=== PATIENT | female | born 1985 | race Caucasian/White ===

== ENCOUNTER 2021-10-05 10:25 | Emergency (ER) | payer MEDICAID | END 2021-10-05 12:20 | disposition home or self-care (01) | LOC: JD.ED 10:25 | DX: T81.89XA Other complications of procedures, not elsewhere classified, initial encounter (principal); Z88.5 Allergy status to narcotic agent; Z88.2 Allergy status to sulfonamides; Z86.16 Personal history of COVID-19 | CPT/HCPCS: 99283 ==

== ENCOUNTER 2022-02-06 06:37 | Inpatient (IN) | payer MEDICAID ==
[2022-02-06] MEDS ORDERED: Metoclopramide 10 MG/2 ML SDV IVPUSH ONE (07:21)
[2022-02-06] MEDS ORDERED: diphenhydrAMINE 50 MG/ML SDV IVPUSH ONE (07:22)
[2022-02-06] MEDS ORDERED: Dextrose 5%-0.9% NaCl 1,000 ML IV SCH (07:30)
[2022-02-06] MEDS ORDERED: HYDROmorphone 1 MG/ML Syringe IVPUSH ONE ×3 (07:35→12:02)
[2022-02-06] MEDS ORDERED: Iopamidol 612 MG/ML 100 ML Bottle IVPUSH ONE (09:06)
[2022-02-06] MEDS ORDERED: Iopamidol 612 MG/ML 50 ML SDV IVPUSH ONE (09:06)
[2022-02-06] MEDS ORDERED: Sodium Chloride 0.9% 10 ML Syringe FLUSH PRN (09:06)
[2022-02-06] MEDS ORDERED: Lactated Ringers 1,000 ML IV SCH ×2 (11:45→14:45)
[2022-02-06] MEDS ORDERED: Albuterol 6.7 GM Inhaler INH PRN (12:05)
[2022-02-06] MEDS: Potassium Chloride 10 MEQ in Premix Bag 1 BAG IV SCH ×4 (12:12→15:56)
[2022-02-06] MEDS ORDERED: LORazepam 2 MG/ML SDV IVPUSH PRN (12:14)
[2022-02-06] MEDS: HYDROmorphone 1 MG/ML Syringe IVPUSH PRN ×4 (12:41→21:37)
[2022-02-06] MEDS: Enoxaparin 40 MG/0.4 ML Syringe SUBCUT SCH (13:27)
[2022-02-06] MEDS ORDERED: Ketorolac 30 MG/ML SDV IVPUSH ONE (13:35)
[2022-02-06] MEDS: Ondansetron 4 MG/2 ML SDV IVPUSH PRN ×2 (14:58→20:58)
[2022-02-06] MEDS: Metoclopramide 10 MG/2 ML SDV IVPUSH PRN (17:38)
[2022-02-06] MEDS: Formoterol/Mometasone 100-5 MCG 8.8 GM Inhaler IH SCH (20:56)
[2022-02-06] MEDS: Acyclovir 200 MG Cap PO SCH (20:58)
[2022-02-06] MEDS: Thiamine 100 MG Tab PO SCH (20:58)
[2022-02-06] MEDS: Pantoprazole 40 MG Tab.CR PO SCH (20:58)
[2022-02-06] MEDS: Topiramate 25 MG Tab PO SCH (20:58)
[2022-02-06] MEDS: Fluticasone NASAL Spray 16 GM Bottle NASBOTH SCH (20:59)
[2022-02-07] MEDS: HYDROmorphone 1 MG/ML Syringe IVPUSH PRN ×5 (01:23→20:18)
[2022-02-07] MEDS: Metoclopramide 10 MG/2 ML SDV IVPUSH PRN ×5 (01:24→20:18)
[2022-02-07] MEDS ORDERED: Magnesium Sulfate/Water 4 GM in Premix Bag 1 BAG IV ONE (08:06)
[2022-02-07] MEDS ORDERED: cefTRIAXone 2 GM in Sodium Chloride 0.9% 100 ML IV SCH (08:15)
[2022-02-07] MEDS: Sodium Chloride 0.45% with KCl 1,000 ML IV SCH ×2 (08:43→18:24)
[2022-02-07] MEDS: cefTRIAXone 2 GM in Sodium Chloride 0.9% 100 ML IV SCH (08:50)
[2022-02-07] MEDS ORDERED: Chlorthalidone 25 MG Tab PO SCH (09:00)
[2022-02-07] MEDS: Fluticasone NASAL Spray 16 GM Bottle NASBOTH SCH ×2 (09:37→20:16)
[2022-02-07] MEDS: Acyclovir 200 MG Cap PO SCH ×2 (09:38→20:17)
[2022-02-07] MEDS: buPROPion 150 MG Tab.ER PO SCH (09:38)
[2022-02-07] MEDS: Folic Acid 1 MG Tab PO SCH (09:38)
[2022-02-07] MEDS: Formoterol/Mometasone 100-5 MCG 8.8 GM Inhaler IH SCH ×2 (09:45→20:02)
[2022-02-07] MEDS: Enoxaparin 40 MG/0.4 ML Syringe SUBCUT SCH (13:38)
[2022-02-07] MEDS ORDERED: Acetaminophen/HYDROcodone 325-5 MG Tab PO PRN (14:15)
[2022-02-07] MEDS ORDERED: HYDROmorphone 1 MG/ML Syringe IVPUSH PRN ×2 (14:16→17:30)
[2022-02-07] MEDS ORDERED: Phenazopyridine 95 MG Tab PO ONE (14:30)
[2022-02-07] MEDS: Pantoprazole 40 MG Tab.CR PO SCH (20:17)
[2022-02-07] MEDS: Thiamine 100 MG Tab PO SCH (20:17)
[2022-02-07] MEDS: Topiramate 25 MG Tab PO SCH (20:18)
[2022-02-07] MEDS: Phenazopyridine 95 MG Tab PO SCH (20:18)
[2022-02-07] MEDS: Acetaminophen/HYDROcodone 325-10 MG Tab PO PRN (21:46)
[2022-02-08] MEDS: Metoclopramide 10 MG/2 ML SDV IVPUSH PRN ×6 (00:18→22:57)
[2022-02-08] MEDS: HYDROmorphone 1 MG/ML Syringe IVPUSH PRN ×5 (00:19→23:00)
[2022-02-08] MEDS: Acetaminophen/HYDROcodone 325-10 MG Tab PO PRN ×4 (01:48→21:05)
[2022-02-08] MEDS: Sodium Chloride 0.45% with KCl 1,000 ML IV SCH ×2 (04:25→13:12)
[2022-02-08] MEDS: buPROPion 150 MG Tab.ER PO SCH (08:42)
[2022-02-08] MEDS: cefTRIAXone 2 GM in Sodium Chloride 0.9% 100 ML IV SCH (08:42)
[2022-02-08] MEDS: Phenazopyridine 95 MG Tab PO SCH ×3 (08:43→18:16)
[2022-02-08] MEDS: Acyclovir 200 MG Cap PO SCH ×2 (08:43→21:05)
[2022-02-08] MEDS: Folic Acid 1 MG Tab PO SCH (08:43)
[2022-02-08] MEDS: Fluticasone NASAL Spray 16 GM Bottle NASBOTH SCH ×2 (08:43→21:06)
[2022-02-08] MEDS: Formoterol/Mometasone 100-5 MCG 8.8 GM Inhaler IH SCH ×2 (08:52→20:16)
[2022-02-08] MEDS: Enoxaparin 40 MG/0.4 ML Syringe SUBCUT SCH (13:07)
[2022-02-08] MEDS ORDERED: fentaNYL 12 MCG/HR Transdermal Patch TRDERM SCH (13:30)
[2022-02-08] MEDS: Pantoprazole 40 MG Vial IVPUSH SCH (13:35)
[2022-02-08] MEDS: Chlorthalidone 25 MG Tab PO SCH (13:35)
[2022-02-08] MEDS: Thiamine 100 MG Tab PO SCH (21:04)
[2022-02-08] MEDS: Topiramate 25 MG Tab PO SCH (21:05)
[2022-02-08] MEDS: Pantoprazole 40 MG Tab.CR PO SCH (21:06)
[2022-02-08] MEDS: D5 1/2 NS w/ 40 mEq/L KCl 1,000 ML IV SCH (23:06)
[2022-02-09] MEDS: Pantoprazole 40 MG Vial IVPUSH SCH ×2 (03:10→13:44)
[2022-02-09] MEDS: HYDROmorphone 1 MG/ML Syringe IVPUSH PRN ×5 (03:16→21:19)
[2022-02-09] MEDS: Metoclopramide 10 MG/2 ML SDV IVPUSH PRN ×4 (03:21→21:15)
[2022-02-09] MEDS: cefTRIAXone 2 GM in Sodium Chloride 0.9% 100 ML IV SCH (07:50)
[2022-02-09] MEDS: Acetaminophen/HYDROcodone 325-10 MG Tab PO PRN ×3 (07:51→22:27)
[2022-02-09] MEDS: Fluticasone NASAL Spray 16 GM Bottle NASBOTH SCH ×2 (08:09→21:23)
[2022-02-09] MEDS: Acyclovir 200 MG Cap PO SCH ×2 (08:09→21:04)
[2022-02-09] MEDS: buPROPion 150 MG Tab.ER PO SCH (08:10)
[2022-02-09] MEDS: Folic Acid 1 MG Tab PO SCH (08:10)
[2022-02-09] MEDS: Phenazopyridine 95 MG Tab PO SCH ×3 (08:10→18:08)
[2022-02-09] MEDS: Chlorthalidone 25 MG Tab PO SCH (08:10)
[2022-02-09] MEDS: Formoterol/Mometasone 100-5 MCG 8.8 GM Inhaler IH SCH ×2 (08:56→20:49)
[2022-02-09] MEDS: Enoxaparin 40 MG/0.4 ML Syringe SUBCUT SCH (12:25)
[2022-02-09] MEDS: Ondansetron 4 MG/2 ML SDV IVPUSH PRN (12:26)
[2022-02-09] MEDS: D5 1/2 NS w/ 40 mEq/L KCl 1,000 ML IV SCH (13:44)
[2022-02-09] MEDS: Topiramate 25 MG Tab PO SCH (21:04)
[2022-02-09] MEDS: Thiamine 100 MG Tab PO SCH (21:04)
[2022-02-10] MEDS: D5 1/2 NS w/ 40 mEq/L KCl 1,000 ML IV SCH ×2 (02:26→16:17)
[2022-02-10] MEDS: Metoclopramide 10 MG/2 ML SDV IVPUSH PRN (02:27)
[2022-02-10] MEDS: Pantoprazole 40 MG Vial IVPUSH SCH ×2 (02:30→13:47)
[2022-02-10] MEDS: HYDROmorphone 1 MG/ML Syringe IVPUSH PRN ×5 (02:35→22:10)
[2022-02-10] MEDS: Acetaminophen/HYDROcodone 325-10 MG Tab PO PRN ×3 (06:30→19:55)
[2022-02-10] MEDS: Formoterol/Mometasone 100-5 MCG 8.8 GM Inhaler IH SCH ×2 (08:48→20:22)
[2022-02-10] MEDS: Folic Acid 1 MG Tab PO SCH (09:00)
[2022-02-10] MEDS: buPROPion 150 MG Tab.ER PO SCH (09:00)
[2022-02-10] MEDS: Acyclovir 200 MG Cap PO SCH (09:01)
[2022-02-10] MEDS: Phenazopyridine 95 MG Tab PO SCH (09:01)
[2022-02-10] MEDS: Chlorthalidone 25 MG Tab PO SCH (09:03)
[2022-02-10] MEDS: Fluticasone NASAL Spray 16 GM Bottle NASBOTH SCH (09:03)
[2022-02-10 10:23] LABS: HEMOGLOBIN A1C 5.1 %
[2022-02-10] MEDS: Ondansetron 4 MG/2 ML SDV IVPUSH PRN ×2 (10:54→22:10)
[2022-02-10] MEDS: Enoxaparin 40 MG/0.4 ML Syringe SUBCUT SCH (13:46)
[2022-02-11] MEDS: Pantoprazole 40 MG Vial IVPUSH SCH (01:59)
[2022-02-11] MEDS: HYDROmorphone 1 MG/ML Syringe IVPUSH PRN ×5 (02:05→20:14)
[2022-02-11] MEDS: Fluticasone NASAL Spray 16 GM Bottle NASBOTH SCH ×4 (02:29→22:39)
[2022-02-11] MEDS: Acetaminophen/HYDROcodone 325-10 MG Tab PO PRN (04:14)
[2022-02-11] MEDS: D5 1/2 NS w/ 40 mEq/L KCl 1,000 ML IV SCH ×3 (06:08→22:33)
[2022-02-11] MEDS: Metoclopramide 10 MG/2 ML SDV IVPUSH PRN ×3 (06:19→20:14)
[2022-02-11] MEDS: Folic Acid 1 MG Tab PO SCH (08:41)
[2022-02-11] MEDS ORDERED: hydrALAZINE 20 MG/ML SDV IVPUSH ONE (09:24)
[2022-02-11] MEDS ORDERED: Sodium Chloride 0.9% 1,000 ML IV ONE (09:27)
[2022-02-11] MEDS ORDERED: Iopamidol 612 MG/ML 100 ML Bottle IVPUSH ONE (09:30)
[2022-02-11] MEDS ORDERED: Iopamidol 612 MG/ML 50 ML SDV IVPUSH ONE (09:30)
[2022-02-11] MEDS ORDERED: Sodium Chloride 0.9% 10 ML Syringe FLUSH PRN (09:30)
[2022-02-11] MEDS: oxyCODONE 5 MG Tab PO PRN ×3 (10:05→22:36)
[2022-02-11] MEDS: Formoterol/Mometasone 100-5 MCG 8.8 GM Inhaler IH SCH ×2 (10:24→20:02)
[2022-02-11] MEDS: Acetaminophen 325 MG Tab PO PRN ×3 (11:28→22:36)
[2022-02-12] MEDS: HYDROmorphone 1 MG/ML Syringe IVPUSH PRN ×5 (01:56→19:50)
[2022-02-12] MEDS: Metoclopramide 10 MG/2 ML SDV IVPUSH PRN ×4 (01:57→21:11)
[2022-02-12] MEDS: oxyCODONE 5 MG Tab PO PRN ×2 (05:51→10:05)
[2022-02-12] MEDS: Acetaminophen 325 MG Tab PO PRN ×3 (05:51→14:12)
[2022-02-12] MEDS: D5 1/2 NS w/ 40 mEq/L KCl 1,000 ML IV SCH ×3 (05:52→21:51)
[2022-02-12] MEDS ORDERED: Magnesium Sulfate/Water 2 GM in Premix Bag 1 BAG IV ONE (07:03)
[2022-02-12] MEDS: Pantoprazole 40 MG Tab.CR PO SCH (07:59)
[2022-02-12] MEDS: Fluticasone NASAL Spray 16 GM Bottle NASBOTH SCH ×2 (08:04→21:07)
[2022-02-12] MEDS: Formoterol/Mometasone 100-5 MCG 8.8 GM Inhaler IH SCH ×2 (08:53→20:49)
[2022-02-12] MEDS: oxyCODONE 5 MG Tab PO SCH ×3 (14:12→21:06)
[2022-02-12] MEDS: Losartan 50 MG Tab PO SCH (21:06)
[2022-02-13] MEDS: HYDROmorphone 1 MG/ML Syringe IVPUSH PRN ×6 (00:58→18:45)
[2022-02-13] MEDS: oxyCODONE 5 MG Tab PO SCH ×6 (01:43→22:21)
[2022-02-13] MEDS: D5 1/2 NS w/ 40 mEq/L KCl 1,000 ML IV SCH ×3 (04:55→22:25)
[2022-02-13] MEDS: Pantoprazole 40 MG Tab.CR PO SCH (09:33)
[2022-02-13] MEDS: Losartan 50 MG Tab PO SCH (09:33)
[2022-02-13] MEDS: Fluticasone NASAL Spray 16 GM Bottle NASBOTH SCH ×2 (09:33→22:22)
[2022-02-13] MEDS ORDERED: Polyethylene Glycol 3350 Powder 17 GM Packet PO PRN (13:32)
[2022-02-13] MEDS ORDERED: Magnesium Hydroxide 400 MG/5 ML Susp 30 ML Cup PO PRN (13:33)
[2022-02-13] MEDS: Formoterol/Mometasone 100-5 MCG 8.8 GM Inhaler IH SCH ×2 (13:47→20:05)
[2022-02-13] MEDS: Metoclopramide 10 MG/2 ML SDV IVPUSH PRN ×2 (13:52→18:46)
[2022-02-13] MEDS: Docusate Sodium 100 MG Cap PO SCH ×2 (16:59→22:21)
[2022-02-14] MEDS: HYDROmorphone 1 MG/ML Syringe IVPUSH PRN ×2 (00:39→11:58)
[2022-02-14] MEDS: Metoclopramide 10 MG/2 ML SDV IVPUSH PRN ×2 (00:39→06:40)
[2022-02-14] MEDS: oxyCODONE 5 MG Tab PO SCH ×5 (02:03→17:13)
[2022-02-14] MEDS: D5 1/2 NS w/ 40 mEq/L KCl 1,000 ML IV SCH (02:05)
[2022-02-14] MEDS: Formoterol/Mometasone 100-5 MCG 8.8 GM Inhaler IH SCH (09:20)
[2022-02-14] MEDS: Losartan 50 MG Tab PO SCH (09:30)
[2022-02-14] MEDS: Docusate Sodium 100 MG Cap PO SCH (09:32)
[2022-02-14] MEDS: Pantoprazole 40 MG Tab.CR PO SCH (09:32)
[2022-02-14] MEDS: Fluticasone NASAL Spray 16 GM Bottle NASBOTH SCH (09:32)
== END 2022-02-14 17:24 | disposition home or self-care (01) | DRG 439 ==
LOC: JD.ED 06:37 → JD.MS 11:39 → JD.OB 02-09 15:21 → JD.MS 02-12 08:21
PROVIDERS: ADMIT Internal Medicine Cardiovascular Disease; ATTEND Internal Medicine Cardiovascular Disease
DX: K85.20 Alcohol induced acute pancreatitis without necrosis or infection (principal); E87.1 Hypo-osmolality and hyponatremia; J98.11 Atelectasis; N30.00 Acute cystitis without hematuria; K76.0 Fatty (change of) liver, not elsewhere classified; E87.6 Hypokalemia; K75.81 Nonalcoholic steatohepatitis (NASH); F10.20 Alcohol dependence, uncomplicated; E78.5 Hyperlipidemia, unspecified; E83.42 Hypomagnesemia; J45.909 Unspecified asthma, uncomplicated; Z79.899 Other long term (current) drug therapy; Z79.51 Long term (current) use of inhaled steroids; Z88.2 Allergy status to sulfonamides; Z86.16 Personal history of COVID-19; Z90.710 Acquired absence of both cervix and uterus
CPT/HCPCS: 36415; 74177; 74177-26; 80048; 80053; 80061; 80076; 81001; 82977; 83036; 83605; 83690; 83735; 85007; 85025; 85027; 85610; 85652; 85730; 86140; 87086; 94640; 94760; 94761; 94762; 96361; 96374; 96375; 99284; 99285-25; A9270-GY; C9113; J0696; J1170; J1200; J1650; J1885; J2405; J2765; J3475; J3480; J3490; J7030; J7042; J7120; Q9967

== ENCOUNTER 2022-06-30 10:50 | Day surgery (SDC) | payer MEDICAID ==
[~2022-06-30 10:50] MED LIST: Bupivacaine 0.5%/EPINEPHrine 1:200,000 50 ML MDV ONE; Lactated Ringers 1,000 ML IV SCH; Lidocaine 1% with EPINEPHrine 1:100,000 10 ML MDV ONE; Lidocaine 1%/Sod Bicarbonate in NS 8.4% 1 ML Syringe IDERM PRN; Sodium Chloride 0.9% 10 ML Syringe FLUSH PRN; Sodium Chloride 0.9% 10 ML Syringe FLUSH SCH
[2022-06-30] MEDS ORDERED: HYDROmorphone 0.5 MG/0.5 ML Syringe IVPUSH PRN (11:42)
[2022-06-30] MEDS ORDERED: Ondansetron 4 MG/2 ML SDV IVPUSH PRN (11:42)
[2022-06-30] MEDS ORDERED: Sugammadex Sodium 200 MG/2 ML VIAL ONE (11:45)
[2022-06-30] MEDS ORDERED: Famotidine 20 MG/2 ML SDV ONE (11:46)
[2022-06-30] MEDS ORDERED: Bupivacaine 0.5%/EPINEPHrine 1:200,000 50 ML MDV ONE (12:05)
[2022-06-30] MEDS ORDERED: Midazolam 1 MG/ML 2 ML SDV ONE (12:17)
[2022-06-30] MEDS ORDERED: Ketamine 500 mg/10 ML MDV ONE (12:17)
[2022-06-30] MEDS ORDERED: fentaNYL 100 MCG/2 ML SDV ONE ×2 (12:17→14:02)
[2022-06-30] MEDS ORDERED: Propofol 200 MG/20 ML SDV ONE ×4 (12:18→14:50)
[2022-06-30] MEDS ORDERED: Lidocaine 1% 5 ML VIAL ONE (12:23)
[2022-06-30] MEDS ORDERED: Ondansetron 4 MG/2 ML SDV ONE (12:25)
[2022-06-30] MEDS ORDERED: Dexamethasone 4 MG/ML 5 ML MDV ONE (12:27)
[2022-06-30] MEDS ORDERED: ceFAZolin 2 GM Vial ONE (12:32)
[2022-06-30] MEDS ORDERED: Potassium Chloride 10 MEQ in Premix Bag 1 BAG IV ONE (13:11)
[2022-06-30] MEDS ORDERED: Dexmedetomidine 200 MCG/2 ML SDV ONE (13:19)
[2022-06-30] MEDS ORDERED: Rocuronium 50 MG/5 ML Vial ONE (14:18)
[2022-06-30] MEDS ORDERED: HYDROmorphone 0.5 MG/0.5 ML Syringe ONE ×2 (14:46→15:15)
[2022-06-30] MEDS ORDERED: Ketorolac 30 MG/ML SDV ONE (14:48)
[2022-06-30] MEDS ORDERED: Potassium Chloride 20 MEQ Tab.ER PO ONE (15:10)
[2022-06-30] MEDS: fentaNYL 100 MCG/2 ML SDV IVPUSH PRN ×2 (15:30→15:41)
[2022-06-30] MEDS ORDERED: Acetaminophen/oxyCODONE 325-5 MG Tab PO SCH (15:38)
== END 2022-06-30 17:20 | disposition home or self-care (01) ==
LOC: JD.SDS 10:50
PROVIDERS: ATTEND Surgery
DX: K81.1 Chronic cholecystitis (principal); E66.01 Morbid (severe) obesity due to excess calories; I10 Essential (primary) hypertension; F41.1 Generalized anxiety disorder; J45.20 Mild intermittent asthma, uncomplicated; F33.41 Major depressive disorder, recurrent, in partial remission; Z68.41 Body mass index [BMI] 40.0-44.9, adult; Z88.8 Allergy status to other drugs, medicaments and biological substances; Z88.2 Allergy status to sulfonamides; Z79.899 Other long term (current) drug therapy; Z98.890 Other specified postprocedural states; Z90.710 Acquired absence of both cervix and uterus; Z87.891 Personal history of nicotine dependence; Z86.16 Personal history of COVID-19
CPT/HCPCS: 36415; 47562; 80048; A9270; J0690; J1100; J1170; J1885; J2250; J2405; J2704; J3010; J3480; J3490; J7120

== ENCOUNTER 2022-07-07 07:20 | Emergency (ER) | payer MEDICAID ==
[2022-07-07] MEDS ORDERED: Sodium Chloride 0.9% 1,000 ML IV STA (07:49)
[2022-07-07] MEDS ORDERED: Pantoprazole 40 MG Vial IVPUSH ONE (07:49)
[2022-07-07] MEDS ORDERED: Sodium Chloride 0.9% 10 ML Syringe FLUSH PRN (07:49)
[2022-07-07] MEDS ORDERED: Ondansetron 4 MG/2 ML SDV IVPUSH ONE (07:49)
[2022-07-07] MEDS ORDERED: HYDROmorphone 1 MG/ML Syringe IVPUSH ONE (07:52)
[2022-07-07] MEDS ORDERED: Iopamidol 612 MG/ML 100 ML Bottle IVPUSH ONE (08:04)
[2022-07-07] MEDS: Sodium Chloride 0.9% 10 ML Syringe FLUSH PRN ×2 (09:04→09:34)
[2022-07-07] MEDS ORDERED: Sodium Chloride 0.9% 1,000 ML IV ONE (11:06)
[2022-07-07] MEDS ORDERED: HYDROmorphone 0.5 MG/0.5 ML Syringe IVPUSH ONE ×2 (11:23→13:04)
[2022-07-07] MEDS ORDERED: Metoclopramide 10 MG/2 ML SDV IVPUSH ONE (13:03)
== END 2022-07-07 14:28 | disposition home or self-care (01) ==
LOC: JD.ED 07:20
DX: K29.01 Acute gastritis with bleeding (principal); R10.11 Right upper quadrant pain; I10 Essential (primary) hypertension; F41.9 Anxiety disorder, unspecified; F32.A Depression, unspecified; E66.9 Obesity, unspecified; Z68.41 Body mass index [BMI] 40.0-44.9, adult; Z79.899 Other long term (current) drug therapy; Z88.2 Allergy status to sulfonamides; Z88.8 Allergy status to other drugs, medicaments and biological substances
CPT/HCPCS: 36415; 74177; 80053; 83690; 85025; 96361; 96374; 96375; 96376; 99284; C9113; J1170; J2405; J2765; J3490; J7030; Q9967; 36410

== ENCOUNTER 2022-09-29 07:07 | Emergency (ER) | payer MEDICAID ==
[2022-09-29] MEDS ORDERED: Metoclopramide 10 MG/2 ML SDV IVPUSH ONE (08:03)
[2022-09-29] MEDS ORDERED: diphenhydrAMINE 50 MG/ML SDV IVPUSH ONE (08:03)
[2022-09-29] MEDS ORDERED: HYDROmorphone 1 MG/ML Syringe IVPUSH ONE ×3 (08:03→13:04)
[2022-09-29] MEDS: Dextrose 5%-Lactated Ringers 1,000 ML IV SCH ×2 (08:27→13:18)
[2022-09-29 09:01] LABS: ESTIMATED GFR 83 mL/min (>60)
[2022-09-29] MEDS ORDERED: Dextrose 5%-Lactated Ringers 1,000 ML IV SCH (09:45)
[2022-09-29] MEDS: Potassium Chloride 10 MEQ in Premix Bag 1 BAG IV SCH ×3 (09:47→12:43)
[2022-09-29] MEDS ORDERED: Sodium Chloride 0.9% 10 ML Syringe FLUSH PRN ×2 (09:51→10:37)
[2022-09-29] MEDS ORDERED: Iopamidol 612 MG/ML 100 ML Bottle IVPUSH ONE (09:51)
[2022-09-29] MEDS ORDERED: Iopamidol 612 MG/ML 50 ML SDV IVPUSH ONE (10:37)
[2022-09-29] MEDS ORDERED: Ondansetron 4 MG/2 ML SDV IVPUSH ONE (11:04)
[2022-09-29] MEDS ORDERED: Magnesium Sulfate/Water 2 GM in Premix Bag 1 BAG IV ONE (12:07)
[2022-09-29 12:50] LABS: CORONAVIRUS COVID-19 NAA NEGATIVE (NEGATIVE)
[2022-09-29] MEDS ORDERED: LORazepam 2 MG/ML SDV IVPUSH ONE (13:05)
[2022-09-29] MEDS ORDERED: Sodium Chloride 0.9% 1,000 ML IV SCH (13:15)
== END 2022-09-29 13:48 ==
LOC: JD.ED 07:07
DX: K92.2 Gastrointestinal hemorrhage, unspecified (principal); E87.1 Hypo-osmolality and hyponatremia; R16.0 Hepatomegaly, not elsewhere classified; E87.20 Acidosis, unspecified; E83.42 Hypomagnesemia; R11.14 Bilious vomiting; D64.9 Anemia, unspecified; I10 Essential (primary) hypertension; J45.909 Unspecified asthma, uncomplicated; E03.9 Hypothyroidism, unspecified; Z88.2 Allergy status to sulfonamides; Z88.8 Allergy status to other drugs, medicaments and biological substances; Z79.899 Other long term (current) drug therapy; Z20.822 Contact with and (suspected) exposure to COVID-19
CPT/HCPCS: 0241U; 36415; 74177; 74177-26; 80053; 81001; 82009; 82977; 83605; 83690; 83735; 84443; 84703; 85025; 85610; 85730; 86140; 86850; 86900; 86901; 87040; 96365; 96366; 96368; 96375; 96376; 99285; 99285-25; J1170; J1200; J2060; J2405; J2765; J3475; J3480; J3490; J7030; J7121; Q9967